=== PATIENT | female | born 1975 | race Caucasian/White ===

== ENCOUNTER 2022-01-12 22:32 | Emergency (ER) | payer OTHER ==
[~2022-01-12] VITALS: Ht 162.6 cm; Wt 102.1 kg
[2022-01-12 22:32] VITALS: BP_SYST 155
--- NOTE | 2022-01-13 02:00 | NUR ---
PATIENT STATED THAT THEY WILL BE LEAVING AFTER EKG RESULTS.
== END 2022-01-13 02:00 | disposition left against medical advice (07) ==
LOC: SED 22:32
DX: M79.602 Pain in left arm (principal); R42 Dizziness and giddiness; Z53.21 Procedure and treatment not carried out due to patient leaving prior to being seen by health care provider
CPT/HCPCS: 93005